=== PATIENT | female | born 1985 | race Two or more races ===

== ENCOUNTER 2020-09-04 13:00 | Emergency (ER) | payer OTHER ==
[~2020-09-04] VITALS: Ht 172.7 cm; Wt 95.5 kg
[2020-09-04 13:25] VITALS: BP 105/68
== END 2020-09-04 15:41 | disposition home or self-care (01) ==
LOC: EMS 13:36
DX: U07.1 COVID-19 (principal); R51.9 Headache, unspecified; R05 Cough
CPT/HCPCS: 99283; U0003

== ENCOUNTER 2022-03-19 13:29 | Emergency (ER) | payer OTHER ==
[~2022-03-19] VITALS: Ht 170.2 cm; Wt 81.0 kg
[2022-03-19 13:51] VITALS: BP 118/69
[2022-03-19] MEDS ORDERED: KETOROLAC TROMETHAMINE 60 MG/2 ML VIAL IM ONE (14:15)
[2022-03-19] MEDS ORDERED: GABAPENTIN 300 MG CAPSULE PO ONE (14:15)
[2022-03-19] MEDS ORDERED: METHOCARBAMOL 500 MG TABLET PO ONE (14:15)
[2022-03-19] MEDS ORDERED: METH-659 PO (14:17)
[2022-03-19] MEDS ORDERED: GABA-1181 PO (14:17)
== END 2022-03-19 14:50 | disposition home or self-care (01) ==
LOC: EMS 13:31
DX: S29.012A Strain of muscle and tendon of back wall of thorax, initial encounter (principal); X50.9XXA Other and unspecified overexertion or strenuous movements or postures, initial encounter; Y93.89 Activity, other specified; Y92.89 Other specified places as the place of occurrence of the external cause; Y99.8 Other external cause status
CPT/HCPCS: 96372; 99283; J1885